=== PATIENT | male | born 1985 | race Caucasian/White ===

== ENCOUNTER 2017-09-06 18:42 | Emergency (ER) | payer OTHER ==
[~2017-09-06] VITALS: Ht 175.3 cm; Wt 102.1 kg
[~2017-09-06 18:42] MED LIST: CIPROFLOXACIN500 M1 PO; FLAGYL500 MG PO; HYDROCODON-ACE1 EAC7 PO; IBUPROFEN 800800 M1 PO; LORTAB 5 MG/5001 TA1 PO; NORCO 5-325 TA1 EACH PO; PHENERGAN 25 MG25 M1 PO; PRILOSEC40 MG PO; ZOFRAN ODT4 MG PO
[2017-09-06] MEDS ORDERED: KEFLEX500 M1 PO (19:11)
[2017-09-06] MEDS ORDERED: BACTROBAN CREAM30 G1 TOP (19:11)
[2017-09-06] MEDS ORDERED: BACTRIM DS TAB1 EACH PO (19:11)
[2017-09-06 19:19] VITALS: BP 138/76
== END 2017-09-06 19:22 | disposition home or self-care (01) ==
LOC: M.ERS 18:42
DX: L03.116 Cellulitis of left lower limb (principal); I10 Essential (primary) hypertension

== ENCOUNTER 2019-06-21 16:17 | Emergency (ER) | payer OTHER ==
[~2019-06-21] VITALS: Ht 177.8 cm; Wt 102.1 kg
[~2019-06-21 16:17] MED LIST changes: +BACTRIM DS TAB1 EACH PO; +BACTROBAN CREAM30 G1 TOP; +KEFLEX500 M1 PO
[2019-06-21] MEDS ORDERED: IBUPROFEN 800800 MG PO (17:57)
[2019-06-21] MEDS ORDERED: NORCO 5-325 TA1 EAC1 PO (17:57)
[2019-06-21 18:16] VITALS: BP 153/103
== END 2019-06-21 18:17 | disposition home or self-care (01) ==
LOC: M.ERS 16:17
DX: S20.212A Contusion of left front wall of thorax, initial encounter (principal); W18.39XA Other fall on same level, initial encounter; Y93.51 Activity, roller skating (inline) and skateboarding; Y92.89 Other specified places as the place of occurrence of the external cause; Y99.8 Other external cause status

== ENCOUNTER 2020-05-26 20:42 | Emergency (ER) | payer OTHER ==
[~2020-05-26] VITALS: Ht 177.8 cm; Wt 108.9 kg
[~2020-05-26 20:42] MED LIST changes: +IBUPROFEN 800800 MG PO; +NORCO 5-325 TA1 EAC1 PO
[2020-05-26] MEDS ORDERED: LORCET 5-325 M1 EACH PO (22:29)
[2020-05-26] MEDS ORDERED: KEFLEX500 M1 PO (22:29)
[2020-05-26 22:57] VITALS: BP 148/96
== END 2020-05-26 22:58 | disposition home or self-care (01) ==
LOC: M.ERS 20:42
DX: S60.552A Superficial foreign body of left hand, initial encounter (principal); W34.010A Accidental discharge of airgun, initial encounter; Y93.89 Activity, other specified; Y92.89 Other specified places as the place of occurrence of the external cause; Y99.8 Other external cause status